=== PATIENT | female | born 1985 | race Caucasian/White ===

== ENCOUNTER 2022-08-23 10:51 | Inpatient (IN) | payer BC, SELFPAY ==
[~2022-08-23 10:51] MED LIST: Bupivacaine 0.25% HCL 30 ML VIAL ONE; Lidocaine 2% PF 5 ML VIAL ONE; ePHEDrine Sulfate 50 MG/10 ML VIAL ONE
[2022-08-23] MEDS ORDERED: Acetaminophen 500 MG TAB PO PRN (11:16)
[2022-08-23] MEDS ORDERED: hydrALAZINE 20 MG/ML VIAL SLOW IVP PRN ×2 (11:16→21:12)
[2022-08-23] MEDS ORDERED: Misoprostol 200 MCG TAB PR PRN (11:16)
[2022-08-23] MEDS ORDERED: Docusate 100 MG CAP PO PRN (11:16)
[2022-08-23] MEDS ORDERED: Ibuprofen 800 MG TAB PO PRN (11:16)
[2022-08-23] MEDS ORDERED: NS w/ Oxytocin 30 units 500 ML IV SCH ×3 (11:16→21:15)
[2022-08-23] MEDS ORDERED: Butorphanol Tartrate 1 MG/ML VIAL SLOW IVP PRN (11:16)
[2022-08-23] MEDS ORDERED: Promethazine HCl 25 MG/ML VIAL IM PRN (11:16)
[2022-08-23] MEDS ORDERED: Lidocaine 1% (PF) 30 ML VIAL SC PRN (11:16)
[2022-08-23] MEDS ORDERED: Diphenoxylate HCl/Atropine Tablet PO PRN ×2 (11:16)
[2022-08-23] MEDS ORDERED: Ondansetron PF 4 MG/2 ML Vial IVP PRN ×2 (11:16→21:12)
[2022-08-23] MEDS ORDERED: Lactated Ringer's 1,000 ML IV SCH (11:16)
[2022-08-23] MEDS ORDERED: HYDROcodone/Acetaminophen 5/325 mg Tablet PO PRN ×4 (11:16→21:12)
[2022-08-23 11:39] LABS: Hemoglobin 12.1 g/dL (12.0-15.5); Mean Corpuscular HGB CONC 33.9 g/dL (32.0-36.0); Mean Corpuscular Hemoglobin 28.4 pg (27.0-33.0); Mean Corpuscular Volume 83.8 fl (81.6-98.3); Mean Platelet Volume 10.5 fl (7.4-10.4); Platelet Count 285 10x3/uL (150-450); RBC Distribution Width 14.6 % (11.5-14.5); Red Blood Cell (RBC) Count 4.26 10x6/uL (3.90-5.03); White Blood Cell (WBC) Count 6.2 10x3/uL (3.5-10.5)
[2022-08-23 12:07] LABS: SARS-CoV-2 NAA Rapid Test DETECTED (NotDetected)
[2022-08-23 12:09] LABS: HBSAg Index 0.13 S/CO (0-0.99); HIV (1/2) Antibody/Antigen Non-Reactive (NonReactive); HIV 1/2 INDEX 0.13 S/CO (<1.00); Hep B Surf Ag Non-Reactive S/CO (NonReactive)
[2022-08-23] MEDS ORDERED: NS w/ Oxytocin 30 units 500 ML ONE (12:23)
[2022-08-23] MEDS ORDERED: Fentanyl 2 mcg/Bup 0.1% Cadd 100 ML ONE (12:34)
[2022-08-23 13:24] VITALS: BMI 35.2
[2022-08-23 18:52] LABS: Syphilis Antibody Nonreactive (Nonreactive); Syphilis Antibody Index 0.08 S/CO (<1.00 Non-Reactive)
[2022-08-23] MEDS ORDERED: Benzocaine-Menthol 82.5 ML CAN TOP PRN (21:12)
[2022-08-23] MEDS ORDERED: Zolpidem Tartrate 5 MG TAB PO PRN (21:12)
[2022-08-23] MEDS ORDERED: Bisacodyl 10 MG SUPP PR PRN (21:12)
[2022-08-23] MEDS ORDERED: Milk Of Magnesia 30 ML UDCUP PO PRN (21:12)
[2022-08-23] MEDS ORDERED: diphenhydrAMINE 25 MG CAP PO PRN (21:12)
[2022-08-23] MEDS ORDERED: Boostrix 0.5 ML (Tdap) VIAL (>/=7 yrs of age) IM ONE (21:12)
[2022-08-23] MEDS ORDERED: Misoprostol 200 MCG TAB VAG PRN (21:12)
[2022-08-23] MEDS ORDERED: Lanolin Ointment 7 GM TUBE TOP PRN (21:12)
[2022-08-23] MEDS ORDERED: Preparation H Ointment 28 GM TUBE PR PRN (21:12)
[2022-08-23] MEDS ORDERED: Pseudoephedrine HCl 30 MG TAB PO PRN (21:13)
[2022-08-23] MEDS ORDERED: Ibuprofen 800 MG TAB PO SCH (22:00)
[2022-08-24] MEDS: Guaifenesin DM 100-10/5 ML UDCUP PO PRN ×4 (00:15→20:36)
[2022-08-24 03:57] LABS: #Basophils 0.1 10x3/uL (0.0-0.2); #Neutrophils 8.2 10x3/uL (1.5-8.4); %Basophils 0.5 % (0.0-2.0); %Eosinophils 0.4 % (0.0-6.0); %Lymphocytes 15.3 % (18.0-47.0); %Monocytes 8.7 % (0.0-10.0); %Neutrophils 74.4 % (40.0-75.0); Mean Corpuscular Hemoglobin 29.1 pg (27.0-33.0); Mean Corpuscular Volume 85.7 fl (81.6-98.3); Mean Platelet Volume 10.5 fl (7.4-10.4); Platelet Count 254 10x3/uL (150-450); RBC Distribution Width 14.6 % (11.5-14.5); Red Blood Cell (RBC) Count 3.78 10x6/uL (3.90-5.03)
[2022-08-24] MEDS: Docusate 100 MG CAP PO SCH ×2 (07:45→20:36)
[2022-08-24] MEDS: Ibuprofen 800 MG TAB PO SCH ×2 (07:45→15:52)
[2022-08-24] MEDS: Ferrous Sulfate 325 MG TAB PO SCH ×2 (07:46→16:57)
[2022-08-25] MEDS: Ibuprofen 800 MG TAB PO SCH ×2 (00:24→09:36)
[2022-08-25] MEDS: Guaifenesin DM 100-10/5 ML UDCUP PO PRN ×2 (00:24→09:37)
[2022-08-25 08:34] VITALS: BP 140/86; TEMP 98.1
[2022-08-25] MEDS: Docusate 100 MG CAP PO SCH (09:35)
== END 2022-08-25 13:30 | disposition home or self-care (01) | DRG 805 ==
LOC: CSHLD 10:51 → CSHPP 23:45
PROVIDERS: ADMIT Obstetrics & Gynecology; ATTEND Obstetrics & Gynecology
PROC: 10E0XZZ Delivery of Products of Conception, External Approach (ICD-10-PCS; principal; 2022-08-23)
PROC: 0KQM0ZZ Repair Perineum Muscle, Open Approach (ICD-10-PCS; 2022-08-23)
PROC: 8E0ZXY6 Isolation (ICD-10-PCS; 2022-08-23)
PROC: 10907ZC Drainage of Amniotic Fluid, Therapeutic from Products of Conception, Via Natural or Artificial Opening (ICD-10-PCS; 2022-08-23)
DX: O26.893 Other specified pregnancy related conditions, third trimester (principal); U07.1 COVID-19; Z37.0 Single live birth; O98.52 Other viral diseases complicating childbirth; Z67.11 Type A blood, Rh negative; Z3A.39 39 weeks gestation of pregnancy; O36.63X0 Maternal care for excessive fetal growth, third trimester, not applicable or unspecified; Z79.899 Other long term (current) drug therapy; Z79.82 Long term (current) use of aspirin; F32.A Depression, unspecified; O99.344 Other mental disorders complicating childbirth; O70.1 Second degree perineal laceration during delivery; O10.92 Unspecified pre-existing hypertension complicating childbirth
CPT/HCPCS: 36415; 51702; 85025; 85027; 86780; 86850; 86870; 86900; 86901; 87340; 87389; J2001; S0020; U0002